=== PATIENT | male | born 1980 | race Caucasian/White ===

== ENCOUNTER 2016-08-01 20:44 | Emergency (ER) | payer MEDICAID ==
[~2016-08-01] VITALS: Ht 193 cm; Wt 106.6 kg
[2016-08-01 20:50] VITALS: BP 117/74
== END 2016-08-01 21:51 | disposition home or self-care (01) ==
LOC: ER 20:47
DX: J06.9 Acute upper respiratory infection, unspecified (principal)
CPT/HCPCS: 71010; 99283; A4606; Z7610